=== PATIENT | female | born 1970 | race Caucasian/White ===

== ENCOUNTER → 2023-07-15 09:38 | Outpatient (REF) | payer BC, SELFPAY | LOC: WDC 09:38 | PROVIDERS: ATTENDING PHYSICIAN Obstetrics & Gynecology; FAMILY PHYSICIAN Internal Medicine Geriatric Medicine | DX: N63.10 Unspecified lump in the right breast, unspecified quadrant (principal); N60.19 Diffuse cystic mastopathy of unspecified breast; N63.11 Unspecified lump in the right breast, upper outer quadrant | CPT/HCPCS: 76642; 77062; 77066 ==

== ENCOUNTER → 2023-09-14 09:22 | Outpatient (REF) | payer SELFPAY | LOC: HWRAD 09:22 | PROVIDERS: ATTENDING PHYSICIAN Internal Medicine Geriatric Medicine | DX: Z00.00 Encounter for general adult medical examination without abnormal findings (principal); S32.010A Wedge compression fracture of first lumbar vertebra, initial encounter for closed fracture; J30.9 Allergic rhinitis, unspecified; E03.9 Hypothyroidism, unspecified; K29.70 Gastritis, unspecified, without bleeding; J45.909 Unspecified asthma, uncomplicated; R47.81 Slurred speech; E78.2 Mixed hyperlipidemia; F80.9 Developmental disorder of speech and language, unspecified; K52.9 Noninfective gastroenteritis and colitis, unspecified; R13.10 Dysphagia, unspecified; Z13.31 Encounter for screening for depression; E55.9 Vitamin D deficiency, unspecified; E04.1 Nontoxic single thyroid nodule; R07.2 Precordial pain | CPT/HCPCS: 75571 ==

== ENCOUNTER → 2023-09-28 08:26 | Outpatient (REF) | payer BC, SELFPAY | LOC: RCS 08:26 | PROVIDERS: ATTENDING PHYSICIAN Internal Medicine Geriatric Medicine | DX: Z00.00 Encounter for general adult medical examination without abnormal findings (principal); S32.010A Wedge compression fracture of first lumbar vertebra, initial encounter for closed fracture; J30.9 Allergic rhinitis, unspecified; E03.9 Hypothyroidism, unspecified; K29.70 Gastritis, unspecified, without bleeding; J45.909 Unspecified asthma, uncomplicated; R47.81 Slurred speech; E78.2 Mixed hyperlipidemia; F80.9 Developmental disorder of speech and language, unspecified; K52.9 Noninfective gastroenteritis and colitis, unspecified; R13.10 Dysphagia, unspecified; Z13.31 Encounter for screening for depression; E55.9 Vitamin D deficiency, unspecified; E04.1 Nontoxic single thyroid nodule; R07.2 Precordial pain | CPT/HCPCS: 93017; 76536; 93350 ==

== ENCOUNTER → 2023-10-26 07:59 | Outpatient (REF) | payer BC, SELFPAY | LOC: WDC 07:59 | PROVIDERS: ATTENDING PHYSICIAN Obstetrics & Gynecology; FAMILY PHYSICIAN Internal Medicine Geriatric Medicine | DX: R92.2 Inconclusive mammogram (principal) | CPT/HCPCS: 76641 ==

== ENCOUNTER → 2023-11-02 09:38 | Outpatient (REF) | payer BC, SELFPAY | LOC: RAD 09:38 | PROVIDERS: ATTENDING PHYSICIAN Family Medicine; FAMILY PHYSICIAN Internal Medicine Geriatric Medicine | DX: J18.9 Pneumonia, unspecified organism (principal); R06.2 Wheezing; R09.89 Other specified symptoms and signs involving the circulatory and respiratory systems | CPT/HCPCS: 71046 ==

== ENCOUNTER → 2024-04-25 07:54 | Outpatient (REF) | payer BC, SELFPAY | LOC: WDC 07:54 | PROVIDERS: ATTENDING PHYSICIAN Obstetrics & Gynecology; FAMILY PHYSICIAN Internal Medicine Geriatric Medicine | DX: R92.8 Other abnormal and inconclusive findings on diagnostic imaging of breast (principal) | CPT/HCPCS: 76642 ==

== ENCOUNTER → 2024-05-09 07:38 | Outpatient (REF) | payer BC, SELFPAY ==
[2024-05-09 08:05] VITALS: BP 111/74; BP_SYST 56
== END ==
LOC: RADI 07:38
PROVIDERS: ATTENDING PHYSICIAN Internal Medicine Endocrinology, Diabetes & Metabolism; FAMILY PHYSICIAN Internal Medicine Geriatric Medicine
DX: E04.1 Nontoxic single thyroid nodule (principal)
CPT/HCPCS: 88173; 10005

== ENCOUNTER → 2024-08-15 10:29 | Outpatient (REF) | payer BC, SELFPAY | LOC: WDC 10:29 | PROVIDERS: ATTENDING PHYSICIAN Advanced Practice Midwife; FAMILY PHYSICIAN Internal Medicine Geriatric Medicine | DX: N63.20 Unspecified lump in the left breast, unspecified quadrant (principal); N63.21 Unspecified lump in the left breast, upper outer quadrant | CPT/HCPCS: 76642; 77062; 77066 ==

== ENCOUNTER → 2025-02-13 07:53 | Outpatient (REF) | payer BC, SELFPAY | LOC: WDC 07:53 | PROVIDERS: ATTENDING PHYSICIAN Obstetrics & Gynecology; FAMILY PHYSICIAN Internal Medicine Geriatric Medicine | DX: R92.2 Inconclusive mammogram (principal) | CPT/HCPCS: 76641 ==